=== PATIENT | male | born 1960 | race Caucasian/White ===

== ENCOUNTER 2018-12-04 19:27 | Emergency (ER) | payer MEDICARE ==
--- NOTE | 2018-12-04 21:05 | ED Physician Chart ---
ED Chief Complaint/HPI - Patient Information Date Seen:: 12/04/18 Time Seen:: 20:00 Chief Complaint:: Right heel pain for 6 weeks. History of Present Illness:: Pt came in by private auto because of right heel pain for about 6 weeks. No known injury. Pt remains ambulatory. R heel pain can be worsened with prolonged wt bearing activities. Pt denies use of any pain medication today. Vitals:: Vital Signs - 8 hr 12/04/18 19:54 Temp 98.7 F HR 64 RR 17 BP 119/75 O2 Sat % 100 Historian:: Patient Family MD/PCP:: Dr. Lugo LMP:: N/A Review:: Nurse's Note Reviewed ED Review of Systems - Review of Systems General/Constitutional: No fever, No weight loss, No weakness, No edema, No loss of appetite Skin: No skin lesions, No rash, No bruising Head: No headache, No light-headedness Eyes: No loss of vision, No pain, No diplopia ENT: No earache, No nasal drainage, No sore throat Neck: No neck pain, No swelling, No stiffness, No mass noted Cardio Vascular: No chest pain Pulmonary: No SOB, No cough, No wheezing GI: No nausea, No vomiting, No pain G/U: No dysuria, No frequency, No hematuria Musculoskeletal: Bone or joint pain (R heel pain, see HPI.), No back pain Endocrine: No polyuria, No polydipsia Psychiatric: No prior psych history Hematopoietic: No bruising, No lymphadenopathy Allergic/Immuno: No urticaria, No angioedema Neurological: No syncope, No focal symptoms, No weakness, No paresthesia, No headache, No confusion ED Past Medical History - Past Medical History Past Medical History: No significant medical hx Family History: None Social History: Smoker (Pt has been informed about health risks associated with chronic tobacco use and has been advised to stop. Pt has been encouraged to enroll in a smoking cessation program. Pt acknowledges understandig.), No Alcohol, No Drug Use, , Lives Alone, Employed Employment:: security associate. Surgical History: None Psychiatricy History: None Medication: None Family Medical History - Family Member Mother History Unknown: Yes Hx Family Cancer: No Hx Family Coronary Artery Disease: No Hx Family Congestive Heart Failure: No Hx Family Hypertension: No Hx Family Stroke: No Hx Family Diabetes: No Hx Family COPD: No ED Physical Exam - Physical Examination General/Constitutional: Awake, Well-developed, well-nourished, Alert, No distress, Non-toxic appearing, Ambulatory Other Gen/Cons comments:: Breathes comfortably, speaks clearly, and interacts appropriately. Head: Atraumatic Eyes: Lids, conjuctiva normal, PERRL, EOMI Skin: Nl inspection, Well hydrated, No lymphadenopathy ENMT: External ears, nose nl, Nasal exam nl, Oropharynx nl Neck: Nontender, Full ROM w/o pain, No nuchal rigidity, No mass Respiratory: Nl effort/Exclusion, Clear to Auscultation, No Wheeze/Rhonchi/Rales Cardio Vascular: RRR, No murmur, gallop, rubs Other Extremities comments:: R lower extremity: Remarkable for tenderness at medial heel. No gross deformity , erythema, ecchymosis, open wound, or swelling. Good ROM of all joints in R foot and ankle. No detectable motor/sensory/vascular deficit. Good distal pulse and capillary refill. Neuro/Psych: Alert/oriented (oriented x 3), Mood normal, No focal deficits ED Labs/Radiology/EKG Results - Radiology Results Results: R heel X-ray: Based on my interpretation, small bone spur noticed at heel. No acute fracture or subluxation. Official report is pending. ED Septic Shock - . Is Septic Shock (SBP<90, OR Lactate>4 mmol\L) present?: No - <6hrs of presentation: Vital Signs: Vital Signs - 8 hr 12/04/18 19:54 Temp 98.7 F HR 64 RR 17 BP 119/75 O2 Sat % 100 ED Reassessment (Disposition) - Reassessment Reassessment:: 2245 Pt feels better. X-ray findings have been reviewed with pt. Pt requests to leave now. Aftercare instructions have been given. Reassessment Condition:: Improved - Diagnosis Diagnosis:: R heel pain. Stable. - Aftercare/Follow up Instructions Aftercare/Follow-Up Instructions:: Refer to Discharge Instructions Notes:: Avoid excessive weight bearing activities and wear supportive footwear. May take Motrin 200 mg tab 4 tabs po q8h prn pain. F/U with PCP Dr. Lugo in one day for recheck. Return to ER immediately if condition worsens or if any further questions/problems. Medication Prescribed:: None - Patient Disposition Discharge/Transfer:: Home Time:: 22:50 Condition at Disposition:: Stable, Improved
--- NOTE | 2018-12-05 09:13 | Diagnostic Imaging Report ---
Right heel 2 views Indication: pain Comparison: none Findings: There is minimal distal Achilles spurring. There is degenerative changes and calcification osteophyte along the anterior tibial plafond and. No evidence of an acute fracture or dislocation. No significant focal soft tissue swelling. Impression: No evidence of an acute fracture. Minimal distal Achilles spurring Calcification and spurring along the anterior tibial plafond region along the tibiotalar joint anteriorly. This may Predispose the patient to anterior impingement in the appropriate clinical setting. In the setting of trauma, if clinical symptoms persist and there is continued concern for an occult fracture, follow up exams in 5-7 days is suggested.
== END 2018-12-04 23:10 | disposition home or self-care (01) ==
LOC: ER 19:27
DX: M79.671 Pain in right foot (principal); F17.200 Nicotine dependence, unspecified, uncomplicated
CPT/HCPCS: 73650-TC-RT; Z7502